=== PATIENT | male | born 1965 | race Caucasian/White ===

== ENCOUNTER 2017-03-30 19:53 | Emergency (ER) | payer MEDICARE | END 2017-03-31 02:58 | disposition short-term general hospital (02) | LOC: ER 19:53 | DX: R16.0 Hepatomegaly, not elsewhere classified (principal); R18.8 Other ascites; J44.9 Chronic obstructive pulmonary disease, unspecified; R53.1 Weakness; F17.210 Nicotine dependence, cigarettes, uncomplicated; Z88.2 Allergy status to sulfonamides | CPT/HCPCS: 36415; 96361; 96374; 96375; 96376 ==